=== PATIENT | female | born 1960 | race Caucasian/White ===

== ENCOUNTER → 2020-12-04 | Outpatient (CLI) | payer BC ==
[~2020-12-04] MED LIST: CALCIUM PO; CYCLOBENZAPRINE5 MG PO; CYMBALTA60 MG PO; DAILY VALUE1 EACH PO; FOLIC ACID PO; HYDROCODON-ACE1 EAC4 PO; LIPITOR TAB 2020 MG PO; LOW DOSE ASPIRI81 MG PO; PROGESTERONE TOP; VITAMIN C500 M4 PO; VITAMIN D PO
== END ==
LOC: OPSV2 09:00
DX: Z01.818 Encounter for other preprocedural examination (principal)

== ENCOUNTER → 2020-12-08 | Day surgery (SDC) | payer BC ==
[~2020-12-08] VITALS: Ht 170.2 cm; Wt 65.8 kg
== END | disposition home or self-care (01) ==
LOC: OR 05:57
DX: D17.1 Benign lipomatous neoplasm of skin and subcutaneous tissue of trunk (principal); E78.5 Hyperlipidemia, unspecified; M19.90 Unspecified osteoarthritis, unspecified site; Z83.2 Family history of diseases of the blood and blood-forming organs and certain disorders involving the immune mechanism; Z88.1 Allergy status to other antibiotic agents; Z88.2 Allergy status to sulfonamides; Z88.8 Allergy status to other drugs, medicaments and biological substances; Z79.82 Long term (current) use of aspirin; Z79.899 Other long term (current) drug therapy
CPT/HCPCS: J0690; J1100; J2001; J2250; J2405; J2704; J3010; J7030; J7120

== ENCOUNTER → 2021-04-22 | Outpatient (CLI) | payer BC | LOC: ECHO 04-07 10:00 | DX: R07.89 Other chest pain (principal); R00.2 Palpitations; B94.8 Sequelae of other specified infectious and parasitic diseases; R06.02 Shortness of breath | CPT/HCPCS: ECHO; 93306 ==

== ENCOUNTER → 2021-05-05 | Outpatient (CLI) | payer BC | LOC: HEART 5 08:31 | DX: R07.89 Other chest pain (principal) | CPT/HCPCS: 78452; A9502 ==

== ENCOUNTER → 2021-08-16 | Outpatient (CLI) | payer BC | LOC: SLEEP 10:21 | DX: R40.0 Somnolence (principal) | CPT/HCPCS: 95810 ==

== ENCOUNTER → 2021-11-09 | Outpatient (CLI) | payer BC | LOC: KOH-I 10:04 | DX: E04.1 Nontoxic single thyroid nodule (principal); E04.2 Nontoxic multinodular goiter | CPT/HCPCS: 76536 ==

== ENCOUNTER → 2022-01-13 | Outpatient (CLI) | payer BC ==
[~2022-01-13] VITALS: Ht 170.2 cm; Wt 68.0 kg
== END ==
LOC: OPSV 15:00
DX: M81.0 Age-related osteoporosis without current pathological fracture (principal)
CPT/HCPCS: 96372

== ENCOUNTER → 2022-04-21 | Outpatient (CLI) | payer BC | LOC: HEART 5 09:30 | DX: R07.89 Other chest pain (principal); R00.2 Palpitations; R06.02 Shortness of breath ==